=== PATIENT | female | born 1975 | race Asian ===

== ENCOUNTER 2019-12-03 12:53 | Outpatient (CLI) | payer OTHER ==
--- NOTE | 2019-12-03 16:05 | Mammography Report ---
Reason: ROUTINE MAMMO Procedure Date: 12/03/2019 Accession Number: [id number] / [id number] Procedure: MGN - Screening Mammo w/Eduardo CPT Code: Final Report FULL RESULT: EXAM: Screening Mammo w/Eduardo DATE: 12/03/2019 1:23 PM CLINICAL HISTORY: Screening encounter. History of early menses. TECHNIQUE: (B) - Bilateral CC and MLO views were obtained. COMPARISON: 11/05/2018 through 07/06/2015. PARENCHYMAL PATTERN: (D) - The breast(s) demonstrate(s) heterogeneously dense fibroglandular parenchyma. FINDINGS: There are no suspicious masses, calcifications, or areas of distortion. IMPRESSION: Negative examination. BI-RADS category 1. RECOMMENDATION: (ANNUAL) - Recommend routine annual screening mammography. BI-RADS CATEGORY: (1) - Negative. STANDARD QUALIFYING STATEMENTS: 1. This examination was not reviewed with the aid of Computer-Aided Detection (CAD). 2. A negative or benign imaging report should not preclude biopsy if clinically suspicious findings are present. 3. Dense breasts may obscure an underlying neoplasm. 4. This examination was reviewed with the aid of 3D breast imaging (tomosynthesis).
== END 2019-12-03 12:54 | disposition home or self-care (01) ==
LOC: DI.N 12:53
DX: Z12.31 Encounter for screening mammogram for malignant neoplasm of breast (principal)
CPT/HCPCS: 77063; 77067

== ENCOUNTER 2020-12-25 13:36 | Outpatient (CLI) | payer OTHER ==
--- NOTE | 2020-12-26 11:40 | Mammography Report ---
BILATERAL DIGITAL SCREENING MAMMOGRAM 3D/2D: 12/25/2020 CLINICAL: Routine screening. Comparison is made to exams dated: 12/03/2019 mammogram - [facility], 11/05/2018 mammo gram, 10/28/2015 mammogram, and 07/06/2015 mammogram - [facility]. The tissue of both b reasts is heterogeneously dense. This may lower the sensitivity of mammography. No significant masses, calcifications, or other findings are seen in either breast. There has been no significant interval change. IMPRESSION: NEGATIVE There is no mammographic evidence of malignancy. A 1 year screening mammogram is recommended. This exam was interpreted at Station ID: [id number]. NOTE: For mammograms, a report in lay terms will be sent to the patient. Approximately 15% of breast malignancies will not be visualized mammographically. In the management of a palpable breast mass, a negative mammogram must not discourage biopsy of a clinically suspicious lesion. Electronically Signed By: Giancarlo Santiago M.D. at/tatianarad:12/25/2020 16:02:13 ACR BI-RADS Category 1: Negative 3341F PARENCHYMAL PATTERN: (D) - The breast(s) demonstrate(s) heterogeneously dense fibroglandular darryl hurt. BI-RADS CATEGORY: (1) - 1 RECOMMENDATION: (ANNUAL) - Recommend routine annual screening mammography. [id number] 1 year screening LATERALITY: (B)
== END 2020-12-25 13:37 | disposition home or self-care (01) ==
LOC: DI.N 13:36
DX: Z12.31 Encounter for screening mammogram for malignant neoplasm of breast (principal)

== ENCOUNTER 2021-01-22 16:45 | Outpatient (CLI) | payer OTHER | END 2021-01-22 16:46 | disposition home or self-care (01) | LOC: COV 16:45 | PROVIDERS: ATTEND Physician Assistant | DX: Z01.812 Encounter for preprocedural laboratory examination (principal); Z20.822 Contact with and (suspected) exposure to COVID-19 ==

== ENCOUNTER 2021-05-05 08:00 | Outpatient (CLI) | payer OTHER | END 2021-05-05 23:59 | disposition home or self-care (01) | LOC: LAB.N 08:00 | PROVIDERS: ATTEND Nurse Practitioner | DX: R07.0 Pain in throat (principal); Z20.822 Contact with and (suspected) exposure to COVID-19 | CPT/HCPCS: 87070 ==

== ENCOUNTER 2021-09-13 14:03 | Outpatient (CLI) | payer OTHER ==
[2021-09-13 18:16] LABS: BASOPHILS # (AUTO) 0.1 10^3/uL (0.0-0.1); BASOPHILS % (AUTO) 1.5 %; EOSINOPHILS # (AUTO) 0.2 10^3/uL (0.0-0.7); EOSINOPHILS % (AUTO) 3.5 %; HCT - HEMATOCRIT 36.5 % (37.0-47.0); HGB - HEMOGLOBIN 12.1 g/dL (12.0-16.0); LYMPHOCYTES % (AUTO) 42.2 %; MEAN CORPUSCULAR HEMOGLOBIN 29.8 pg (27.0-31.0); MEAN CORPUSCULAR HGB CONC 33.2 g/dL (32.0-36.0); MEAN CORPUSCULAR VOLUME 89.9 fL (81.0-99.0); MEAN PLATELET VOLUME 10.5 fL (7.9-10.8); MONOCYTES # (AUTO) 0.4 10^3/uL (0.0-1.0); MONOCYTES % (AUTO) 7.5 %; NEUTROPHILS # (AUTO) 2.2 10^3/uL (1.5-6.6); NEUTROPHILS % (AUTO) 44.9 %; PLT - PLATELET COUNT 321 10^3/uL (130-450); RED BLOOD COUNT 4.06 10^6/uL (4.20-5.40); RED CELL DISTRIBUTION WIDTH 13.7 % (12.0-15.0); WHITE BLOOD COUNT 4.8 x10^3/uL (4.8-10.8)
== END 2021-09-13 23:59 | disposition home or self-care (01) ==
LOC: LAB.WCP 14:03
PROVIDERS: ATTEND Nurse Practitioner Family
DX: R21 Rash and other nonspecific skin eruption (principal); T49.0X5D Adverse effect of local antifungal, anti-infective and anti-inflammatory drugs, subsequent encounter
CPT/HCPCS: 36415; 81599; 82785; 83520; 85025; 86003; 86038; 86200; 86431

== ENCOUNTER 2023-07-11 07:33 | Outpatient (CLI) | payer OTHER ==
[~2023-07-11 07:33] MED LIST: GADOTERATE MEGLUMINE 10 MMOL/20 ML VIAL ONE
[2023-07-11] MEDS ORDERED: GADOTERATE MEGLUMINE 10 MMOL/20 ML VIAL IVP ONE (09:25)
--- NOTE | 2023-07-15 11:19 | MRI Report ---
PROCEDURE: ABDOMEN W/WO INDICATIONS: LEFT ADNEXAL MASS CONTRAST: CLARISCAN 11.8 ML TECHNIQUE: Coronal ultra fast SE, axial 2D spoiled GE in- and vwo-so-yujoo; axial breath-hold T2 fast SE. Dynam ic axial ultra fast GE during the administration of contrast; post-contrast coronal ultra fast GE or 2D spoiled GE with fat saturation from the hepatic dome to the iliac crests. Optional diffusion weig hted imaging and ADC may be performed. COMPARISON: None FINDINGS: Image quality: Excellent. Lung bases and heart: Unremarkable. Liver: No solid mass. Gallbladder and biliary tree: T2 hyperintense cystic lesions are present, with smooth peripheral enha ncement. No associated effusion. Spleen: No splenomegaly. Pancreas: No pancreatic ductal dilation. Adrenals: No adrenal nodule. Kidneys and ureters: No hydronephrosis. No renal cystic lesion which requires follow up. No solid mas s. Bowel and peritoneum: No bowel distension. No pathologic free fluid. Lymph nodes: No central or retroperitoneal adenopathy. Vessels: No infrarenal aortic aneurysm. Bones: No aggressive osseous abnormality. Other: No significant ventral hernia. IMPRESSION: No acute abnormality. Please see dedicated pelvic MRI. Reviewed by: Félix Nevarez on 07/15/2023 11:18 AM PDT Approved by: Félix Nevarez on 07/15/2023 11:18 AM PDT Station ID: [id number]
== END 2023-07-11 07:34 | disposition home or self-care (01) ==
LOC: DI 07:33
PROVIDERS: ATTEND Physician Assistant
DX: N83.8 Other noninflammatory disorders of ovary, fallopian tube and broad ligament (principal)
CPT/HCPCS: 74183; A9575

== ENCOUNTER 2023-07-15 09:26 | Outpatient (CLI) | payer OTHER ==
[2023-07-15] MEDS ORDERED: GADOTERATE MEGLUMINE 10 MMOL/20 ML VIAL ONE (09:36)
--- NOTE | 2023-07-15 15:00 | MRI Report ---
PROCEDURE: PELVIS W/WO INDICATIONS: LEFT ADNEXAL MASS CONTRAST: 11.8ml MultiHance TECHNIQUE: Coronal ultra fast SE, sagittal breath-hold T2 FSE; axial T1 FSE with and without fat saturation thro ugh the pelvis. Optional long- and short-axis uterine nonbreath-hold T2 FSE through the uterus. Sag ittal or axial dynamic ultra fast GE during administration of contrast. Post-contrast axial or coron al ultra fast GE / 2-D spoiled GE with fat saturation from the iliac crests to the symphysis. Option al diffusion weighted imaging and ADC may be performed. COMPARISON: None. FINDINGS: Image quality: Excellent. Uterus: Uterus is absent. Adnexa: Left adnexal mass measuring 6.8 x 6.3 x 6.5 cm. The mass demonstrates intrinsic T1 hyperinten se signal. A 4 mm papillary projection is present along the inferior margin (series 6, image 17), and there are are multiple locules containing variable T2 signal. There is a T-tube the structure immedi ately adjacent to this containing T1 hyperintense signal and incomplete internal septations (series 1 3, image 50). There is T2 shading present within the structures. Urinary system: Bladder wall is normal in thickness. Distal ureters are non distended. Urethra bridger ears normal in morphology. Nodes and vessels: No pelvic or inguinal adenopathy by size criteria. Iliac vessels are normal in s ize. Bowel and peritoneum: No pathologic free pelvic fluid. Inferior colon and small bowel loops are nor mal in caliber. Soft tissues: No inguinal hernias. No findings of pelvic floor incompetence in the absence of provo cation. Bones: Marrow demonstrates normal overall signal. IMPRESSION: O-RADS 4 cystic mass in the left adnexa, probably related to endometrial disease given adjacent fluid filled tubular structure likely representing a remnant fallopian tube. A tiny papillary projection p laces this mass in the O-RADS 4 category. Gynecologic referral is recommended, if not performed alrea dy. No pelvic adenopathy. Reviewed by: Félix Nevarez on 07/15/2023 2:59 PM PDT Approved by: Félix Nevarez on 07/15/2023 2:59 PM PDT Station ID: [id number]
[2023-07-15] MEDS ORDERED: GADOTERATE MEGLUMINE 10 MMOL/20 ML VIAL IVP ONE (18:32)
== END 2023-07-15 09:27 | disposition home or self-care (01) ==
LOC: DI 09:26
PROVIDERS: ATTEND Physician Assistant
DX: N83.202 Unspecified ovarian cyst, left side (principal)
CPT/HCPCS: 72197; A9575

== ENCOUNTER 2024-03-08 12:18 | Inpatient (IN) | payer OTHER ==
[2024-03-08 12:43] LABS: BASOPHILS # (AUTO) 0.1 10^3/uL (0.0-0.1); BASOPHILS % (AUTO) 0.4 %; HCT - HEMATOCRIT 41.8 % (37.0-47.0); HGB - HEMOGLOBIN 14.1 g/dL (12.0-16.0); LYMPHOCYTES # (AUTO) 1.3 10^3/uL (1.5-3.5); LYMPHOCYTES % (AUTO) 7.3 %; MEAN CORPUSCULAR HEMOGLOBIN 29.6 pg (27.0-31.0); MEAN CORPUSCULAR HGB CONC 33.7 g/dL (32.0-36.0); MEAN CORPUSCULAR VOLUME 87.6 fL (81.0-99.0); MEAN PLATELET VOLUME 9.5 fL (7.9-10.8); MONOCYTES # (AUTO) 0.4 10^3/uL (0.0-1.0); MONOCYTES % (AUTO) 2.1 %; NEUTROPHILS % (AUTO) 89.9 %; PLT - PLATELET COUNT 403 10^3/uL (130-450); RED BLOOD COUNT 4.77 10^6/uL (4.20-5.40); RED CELL DISTRIBUTION WIDTH 13.2 % (12.0-15.0); WHITE BLOOD COUNT 17.8 x10^3/uL (4.8-10.8)
[2024-03-08 13:00] LABS: ALBUMIN 4.9 g/dL (3.2-5.5); ALBUMIN/GLOBULIN RATIO 1.4 (1.0-2.2); BILIRUBIN,TOTAL 0.6 mg/dL (0.2-1.0); CALCIUM 10.3 mg/dL (8.5-10.3); CREATININE 0.6 mg/dL (0.6-1.3); POTASSIUM 3.7 mmol/L (3.5-4.5); TOTAL PROTEIN 8.4 g/dL (6.4-8.9)
--- NOTE | 2024-03-08 13:51 | Ultrasound Report ---
PROCEDURE: Pelvic w/Doppler Complete INDICATIONS: pelvic pain TECHNIQUE: Real-time scanning was performed of the pelvic organs, with image documentation. Additional endovagi nal scanning was necessary due to incomplete visualization of the adnexal and endometrial structures by transabdominal scanning. COMPARISON: MRI pelvis 07/15/2023. FINDINGS: Uterus: Surgically absent. Ovaries: The ovaries are surgically absent. Other: Trace midline free fluid is seen. IMPRESSION: 1.The ovaries and uterus are surgically absent. 2.Trace pelvic free fluid. Reviewed by: Grey Padron MD on 03/08/2024 1:50 PM PDT Approved by: Grey Padron MD on 03/08/2024 1:50 PM PDT Station ID: [id number]
--- NOTE | 2024-03-08 15:20 | ED Physician Documentation ---
PD HPI ABD PAIN - Stated complaint Stated Complaint: POST SURG ABD PX - Chief complaint Chief Complaint: Abd Pain - History obtained from History obtained from: Patient, Family - Additional information Additional information: The patient comes to the emergency department chief complaint of left upper quadrant pain that started overnight. She just recently about 1 week ago had a surgery to Remove her left fallopian tube and also, to possibly remove the left ovary in the setting of cystic mass. However, when they went in to do the surgery, turned out that the mass is very complicated and that other than draining the cyst, they really could not actually continue to dissected the ovary out of the other surrounding structures. The tube was removed. The patient states she has been doing well since the surgery and that she has not had any fevers or abdominal pain to speak of. She states that around 2200 yesterday, she began to notice pain in her left upper quadrant and then this progressed to nausea and vomiting. She states that the pain has become persistent instead of intermittent stabs like it was and that she still felt nauseated. She denies any dysuria or change in bowel movements. No fevers or chills. No other complaints at this time. PD PAST MEDICAL HISTORY - Past Medical History Past Medical History: Yes CORPORATE LEGAL ASSISTANT: Ovarian cysts - Past Surgical History Past Surgical History: Yes /CORPORATE LEGAL ASSISTANT: Other - Present Medications Home Medications: Ambulatory Orders Medication Instructions Recorded Confirmed Acetaminophen [Tylenol] 650 mg PO Q6H PRN 03/08/24 03/08/24 Cetirizine [ZyrTEC] 10 mg PO DAILY 03/08/24 03/08/24 Ibuprofen [Motrin] 600 mg PO Q6H PRN 03/08/24 03/08/24 - Allergies Allergies/Adverse Reactions: Allergies Allergy/AdvReac Type Severity Reaction Status Date / Time No Known Drug Allergies Allergy Verified 03/08/24 12:29 - Social History Does the pt smoke?: No Smoking Status: Never smoker Does the pt drink ETOH?: No Does the pt have substance abuse?: No - Immunizations Immunizations are current?: Yes PD ED PE NORMAL - Vitals Vital signs reviewed: Yes - General General: Alert and oriented X 3, No acute distress, Well developed/nourished, Other (The patient appears moderately uncomfortable but otherwise no apparent distress.) - HEENT HEENT: Atraumatic, EOMI, Moist mucous membranes - Neck Neck: Supple, no meningeal sign - Cardiac Cardiac: RRR, No murmur, Strong equal pulses - Respiratory Respiratory: No respiratory distress, Clear bilaterally - Abdomen Abdomen: Soft, Non distended, Other - Derm Derm: Normal color, Warm and dry, No rash - Extremities Extremities: No deformity, No edema - Neuro Neuro: Other (Alert, grossly intact.) - Psych Psych: Normal mood, Normal affect Results - Vitals Vitals: Vital Signs - 24 hr 03/08/24 03/08/24 03/08/24 12:22 15:04 17:00 Temperature 36 C L Heart Rate 74 83 74 Respiratory 18 18 16 Rate Blood Pressure 124/82 H 151/89 H 132/88 H O2 Saturation 97 97 98 Oxygen O2 Source Room air - Labs Labs: Laboratory Tests 03/08/24 03/08/24 03/08/24 12:38 12:38 17:50 WBC 17.8 H RBC 4.77 Hgb 14.1 Hct 41.8 MCV 87.6 MCH 29.6 MCHC 33.7 RDW 13.2 Plt Count 403 MPV 9.5 Neut # (Auto) 16.0 H Lymph # (Auto) 1.3 L [place] # (Auto) 0.4 Eos # (Auto) 0.0 Baso # (Auto) 0.1 Absolute Nucleated RBC 0.00 Nucleated RBC % 0.0 Sodium 135 Potassium 3.7 Chloride 102 Carbon Dioxide 24 Anion Gap 9.0 BUN 14 Creatinine 0.6 Estimated GFR (MDRD) 106 Glucose 154 H Calcium 10.3 Total Bilirubin 0.6 AST 12 ALT 19 Alkaline Phosphatase 66 Total Protein 8.4 Albumin 4.9 Globulin 3.5 Albumin/Globulin Ratio 1.4 Lipase 12 Urine Color YELLOW Urine Clarity CLEAR Urine pH 7.0 Ur Specific [place] 1.010 Urine Protein NEGATIVE Urine Glucose (UA) NEGATIVE Urine Ketones 40 H Urine Occult Blood TRACE-INTA Urine Nitrite NEGATIVE Urine Bilirubin NEGATIVE Urine Urobilinogen 0.2 (NORMAL) Ur Leukocyte Esterase NEGATIVE Ur Microscopic Review NOT INDICATED Urine Culture Comments NOT INDICATED Urine HCG, Qual NEGATIVE PD Medical Decision Making - ED course Complexity details: reviewed results, re-evaluated patient, considered differential, d/w patient, d/w family ED course: I reviewed the patient's records from [facility] including her preop and operative notes. The patient appeared uncomfortable, and she did have a white blood cell count of 18,000. Her ultrasound of the pelvis was unremarkable. Patient was sent for CT scan of the abdomen and pelvis to further evaluate her pain in the postop setting. She was treated symptomatically with Dilaudid, Zofran, and IV fluids. The patient was found to be feeling better but her CT did show what appeared to be small bowel obstruction. There was no clear transition point. I spoke with our surgeon Dr. Smith, who stated that she suspected an ileus, but given that the patient has just had surgery at another facility, she would prefer that we give the patient's surgeon an opportunity to take care of his or her patient. We did call [facility] and they are currently determining whether they have bed space to take the patient back. I have informed the patient of the situation and the plan to either transfer or admit here. The patient is signed out to the oncoming emergency physician at change of shift, pending final disposition. Departure - Departure Forms: PCP List
[2024-03-08] MEDS: ONDANSETRON 4 MG/2 ML VIAL IVP STA (15:24)
[2024-03-08] MEDS: HYDROmorphone 1 MG/ML CARPUJECT IVP STA ×2 (15:24→18:46)
[2024-03-08] MEDS: SODIUM CHLORIDE 0.9% 1,000 ML IV STA (15:24)
[2024-03-08] MEDS ORDERED: iohexoL-300 100 ML VIAL ONE (16:15)
[2024-03-08] MEDS: iohexoL-300 100 ML VIAL IVP ONE (17:15)
--- NOTE | 2024-03-08 17:17 | CT Report ---
PROCEDURE: Abdomen/Pelvis W INDICATIONS: L abd pn, WBC 18, 1 wk post-op CONTRAST: Omni 300 100ml TECHNIQUE: After the administration of intravenous contrast, a CT scan of the abdomen and pelvis was performed. Images were recorded and evaluated at appropriate window settings. Reformats: coronal and sagittal. F or radiation dose reduction, the following was used: automated exposure control, adjustment of mA and /or kV according to patient size. COMPARISON: MRI pelvis with and without contrast dated 07/15/2023, pelvic ultrasound from today FINDINGS: Image quality: Diagnostic. Lower chest: Unremarkable. Liver: No solid mass. Gallbladder: No radiopaque stones or wall thickening. Biliary tree: No intrahepatic or extrahepatic dilation, accounting for age. Spleen: No splenomegaly. Pancreas: No pancreatic ductal dilation. Adrenals: No adrenal nodule. Kidneys and ureters: No hydronephrosis. No renal cystic lesion which requires follow up. No solid mas s. Stomach, bowel and peritoneum: There is now a small bowel obstruction pattern. Proximal small bowel l oops are dilated up to 3 cm in diameter. There is fecalization of small bowel contents. There is a tr ansition point present. Mild ascites. No abscess cavity. Lymph nodes: No central or retroperitoneal adenopathy. Vessels: No infrarenal aortic aneurysm. Patent portal vein. PELVIS Reproductive organs: Uterus is surgically absent. The complex partially solid and partially cystic le ft adnexal structure seen on the MRI, likely representing endometrioma, is diminished in size. The cy stic component on the previous MRI on image 26/7 previously measured 7.0 x 5.6 cm. This component now measures approximately 4.8 x 3.7 cm. The solid component is similar in appearance to previous. Refer ence previous image 36 of series 7 of the MRI and current image 114 of series 2 the solid component m easures approximately 3.7 x 2.0 cm.. Bladder: No abnormal wall thickening, accounting for underdistention. Pelvic lymph nodes: No pelvic adenopathy by size criteria. Bones: No aggressive osseous abnormality. Other: No significant ventral or inguinal hernia. IMPRESSION: 1. Development of a small bowel obstruction pattern. 2. Interval decrease in size of complex partially solid and partially cystic left adnexal mass. 3. Surgical absence of the uterus. Reviewed by: Marcos Post MD on 03/08/2024 5:16 PM PDT Approved by: Marcos Post MD on 03/08/2024 5:16 PM PDT Station ID: [id number]
[2024-03-08 18:02] LABS: BILIRUBIN,URINE NEGATIVE (NEGATIVE); GLUCOSE, URINE (UA) NEGATIVE (NEGATIVE); KETONES,URINE (UA) 40 mg/dL (NEGATIVE); LEUKOCYTE ESTERASE, URINE NEGATIVE (NEGATIVE); NITRITE,URINE NEGATIVE (NEGATIVE); OCCULT BLOOD,URINE TRACE-INTA (NEGATIVE); PROTEIN,URINE NEGATIVE (NEGATIVE); UROBILINOGEN,URINE 0.2 (NORMAL) E.U./dL (NORMAL)
[2024-03-08 18:03] LABS: CLARITY,URINE CLEAR (CLEAR)
[2024-03-08 18:04] LABS: HCG UR QUAL NEGATIVE
[2024-03-08] MEDS: D5.45NS W/20 MEQ KCL 1,000 ML IV STA (18:30)
--- NOTE | 2024-03-08 20:22 | ED Physician Documentation ---
ED Addendum - Addendum Addendum: 03/08/24 20:[address] Newton around 630 shift change. Briefly she had a remote hysterectomy and left oophorectomy and more recently was at [facility] for a laparoscopy for right adnexal mass which was drained on March 01. She had extensive adhesions. Came in today with abdominal pain and vomiting and diagnosed with SBO versus ileus. We were hopeful that potentially should be able to get transferred back to [facility] for postoperative care as that is where her procedure was. I was notified few minutes after 8 PM that they have no beds. I talked to the patient and she was amenable to being admitted here. I discussed the case by phone with our surgeon, Dr. 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 She is available for consultation if needed but at this point we are hopeful that with bowel rest, IV fluids, and NG tube decompression she will improve without operative intervention. Spoke with Dr. Nereyda To for admission at 8:20 PM. Disposition: Admitted to this hospital Condition: Stable Diagnosis: 1. Postoperative ileus versus SBO
[2024-03-08] MEDS ORDERED: PROCHLORPERAZINE 10 MG/2 ML VIAL IVP PRN (21:18)
--- NOTE | 2024-03-08 21:35 | HISTORY & PHYSICAL EXAMINATION ---
Chief Complaint - Chief Complaint Chief Complaint: abdominal pain Abdominal Pain HPI - Admitted From Admitted from: ED - History Obtained From Records Reviewed: RN notes reviewed, Old records reviewed, Other ([facility] H&P and op note from Surgery 03/01/24) History obtained from: Patient Exam limitations: No limitations - History of Present Illness Pain/Problem Location Description: severe abd pain Severity at the worst: Severe Pain Quality: Sharp, Cramping Context-Pain started w/: Eating Timing: Abrupt onset Duration: Hours: Improved with: Other (time, after vomiting) Associated symptoms: Diaphoresis, Vomiting HPI Comment/Other: Patient is s/p laparoscopy 03/01/[address] [facility] with evaluation and drainage of left adnexal mass and lysis of adhesions. The surgeon was not able to remove the mass due to adhesions. Seemed consistent with an endometrioma. She was doing well post op until last evening and this worse this am. Pain became quite severe causing her to sweat and vomit. She vomited 3 times today and came to ER. She last ate last evening and vomited after. That is when her pain started. She denies fever. just was sweating when she felt awful. She had 2 BMs yesterday and one this am. She does not feel constipated but this am she was very bloated. She is not bloated now. She is still painful but much less than previously. 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 Done at [facility]), Other (removal right tube and ovary in 2003 due to an ovarian cyst. recent laparoscopy as described above. 03/01/24) Social & Family Hx - Living Situation Living Arrangement: At home Living Situation: With spouse/s.o. - Social History Does the pt smoke?: No Smoking Status: Former smoker (prior 2 ppd from 1998 to 2008.) Does the pt drink ETOH?: No Does the pt have substance abuse?: No Additional Social History: Born and raised in [place], outside of [facility]. met her in [place] when he was stationed there. Came to [place] with him in . Never has been back except to visit. he is retired now. - POLST Patient has POLST: No - Family History Family History: Father: Cancer (prostate) Family History Comment/Other: mom with h/o fibroid uterus. sister with fibroids and endometriosis. Meds/Allgy - Home Medications Home Medications: Ambulatory Orders Medication Instructions Recorded Confirmed Acetaminophen [Tylenol] 650 mg PO Q6H PRN 03/08/24 03/08/24 Cetirizine [ZyrTEC] 10 mg PO DAILY 03/08/24 03/08/24 Ibuprofen [Motrin] 600 mg PO Q6H PRN 03/08/24 03/08/24 - Allergies Allergies/Adverse Reactions: Allergies Allergy/AdvReac Type Severity Reaction Status Date / Time No Known Drug Allergies Allergy Verified 03/08/24 12:29 Review of Systems - Cardiovascular Cariovascular: denies: Palpitations - Respiratory Respiratory: denies: SOB at rest Exam - Vital Signs Reviewed Vital Signs: Yes Vital Signs: Vital Signs x48h Pulse Resp BP Pulse Ox 03/08/24 21:00 66 18 125/60 99 03/08/24 19:37 74 16 128/62 97 03/08/24 17:00 74 16 132/88 H 98 03/08/24 15:04 83 18 151/89 H 97 - Physical Exam General Appearance: positive: No acute distress, Alert Eyes Bilateral: positive: Normal inspection Neck: positive: Nml inspection Respiratory: positive: No respiratory distress Cardiovascular: positive: Regular rate & rhythm Peripheral Pulses: positive: 2+ Abdomen: positive: No distention, Tenderness (mild.), Other (wounds healing well from surgery last week. mildly tender in lower quadrants. no point tenderness.). negative: Guarding, Rebound, Mass Skin: positive: Color nml. negative: Diaphoresis Extremities: positive: Non-tender, No pedal edema Neurologic/Psychiatric: positive: Oriented x3 Results - Lab Results Fish Bones: 03/08/24 12:38 03/08/24 12:38 Other Lab Results: Lab Results x24hrs 03/08/24 03/08/24 03/08/24 Range/Units 17:50 12:38 12:38 WBC 17.8 H (4.8-10.8) x10^3/uL RBC 4.77 (4.20-5.40) 10^6/uL Hgb 14.1 (12.0-16.0) g/dL Hct 41.8 (37.0-47.0) % MCV 87.6 (81.0-99.0) fL MCH 29.6 (27.0-31.0) pg MCHC 33.7 (32.0-36.0) g/dL RDW 13.2 (12.0-15.0) % Plt Count 403 (130-450) 10^3/uL MPV 9.5 (7.9-10.8) fL Neut # (Auto) 16.0 H (1.5-6.6) 10^3/uL Lymph # (Auto) 1.3 L (1.5-3.5) 10^3/uL [place] # (Auto) 0.4 (0.0-1.0) 10^3/uL Eos # (Auto) 0.0 (0.0-0.7) 10^3/uL Baso # (Auto) 0.1 (0.0-0.1) 10^3/uL Absolute Nucleated RBC 0.00 x10^3/uL Nucleated RBC % 0.0 /100WBC Sodium 135 (135-145) mmol/L Potassium 3.7 (3.5-4.5) mmol/L Chloride 102 (101-111) mmol/L Carbon Dioxide 24 (21-32) mmol/L Anion Gap 9.0 (6-13) BUN 14 (6-20) mg/dL Creatinine 0.6 (0.6-1.3) mg/dL Estimated GFR (MDRD) 106 (>89) Glucose 154 H (74-104) mg/dL Calcium 10.3 (8.5-10.3) mg/dL Total Bilirubin 0.6 (0.2-1.0) mg/dL AST 12 (10-42) IU/L ALT 19 (10-60) IU/L Alkaline Phosphatase 66 (42-121) IU/L Total Protein 8.4 (6.4-8.9) g/dL Albumin 4.9 (3.2-5.5) g/dL Globulin 3.5 (2.1-4.2) g/dL Albumin/Globulin Ratio 1.4 (1.0-2.2) Lipase 12 (11-82) U/L Urine Color YELLOW Urine Clarity CLEAR (CLEAR) Urine pH 7.0 (5.0-7.5) PH Ur Specific [place] 1.010 (1.002-1.030) Urine Protein NEGATIVE (NEGATIVE) mg/dL Urine Glucose (UA) NEGATIVE (NEGATIVE) mg/dL Urine Ketones 40 H (NEGATIVE) mg/dL Urine Occult Blood TRACE-INTA (NEGATIVE) Urine Nitrite NEGATIVE (NEGATIVE) Urine Bilirubin NEGATIVE (NEGATIVE) Urine Urobilinogen 0.2 (NORMAL) (NORMAL) E.U./dL Ur Leukocyte Esterase NEGATIVE (NEGATIVE) Ur Microscopic Review NOT INDICATED Urine Culture Comments NOT INDICATED Urine HCG, Qual NEGATIVE - Diagnostic Imaging Results Diagnostic Imaging Results: positive: Final report reviewed - EKG Results EKG Interpreted Independently: No Impression/Plan - Problem List Problem List: post op pain. post op from laparoscopy with adhesiolysis 03/01/[address] [facility] CT scan done at 1530 today does show possible bowel obstruction. Patient was vomiting and in alot of pain this am but now is better. has not vomited since 10 am. does not feel nauseated. tolerating some ice chips. On exam her abdomen is soft. no longer distended from what she described it was this am. Given that she is better, I will not place an NG tube tonight. If she is not better in the am, I told her we would need to place one, but if she is better, then maybe she will be able to eat and go home. Will keep NPO for tonight except some ice chips. I did tell her not to have much. Her WBC is elevated but no abscess noted on CT and no signs of infection in her urine. No fever. will not give abx for now. Continue hydration with D% 1/2 NS wtih K+. reevaluate in am. If feeling worse, will consult general surgery to assist with management.
[2024-03-08] MEDS: KETOROLAC 30 MG/ML VIAL IVP PRN (22:00)
[2024-03-08] MEDS: SODIUM CHLORIDE FLUSH 0.9% 10 ML SYRINGE IVP SCH (22:00)
[2024-03-09] MEDS: HYDROmorphone 0.5 MG/0.5 ML SYRINGE IVP PRN (02:57)
[2024-03-09] MEDS: D5.45NS W/20 MEQ KCL 1,000 ML IV STA (02:57)
--- NOTE | 2024-03-09 08:06 | PROVIDER PROGRESS NOTE ---
Subjective - Prog Note Date Prog Note Date: 03/09/24 Prog Note Time: 08:04 - Subjective Pt reports feeling: Improved Subjective: still with some pain. 5 now. crampy. feels like gas moving around. no vomiting overnight. not feeling nauseated. feels like she could drink liquids. just urinated. no bm today yet. Objective - Vital Signs/Intake & Output Vital Signs: Vital Signs x48h Temp Pulse Resp BP Pulse Ox 03/09/24 07:44 98.4 F 69 16 91/66 96 03/09/24 00:20 98.1 F 65 20 119/67 95 Intake & Output: Intake & Output 03/06/24 03/07/24 03/08/24 03/09/24 23:59 23:59 23:59 23:59 Intake Total 1000 50 Balance 1000 50 - Objective Abdomen: positive: Other (mild distention, mildy tender mostly left mid abdomen.). negative: Guarding, Rebound - Lab Results Fish Bones: 03/08/24 12:38 03/08/24 12:38 Other Labs: Lab Results x24hrs 03/08/24 03/08/24 03/08/24 Range/Units 17:50 12:38 12:38 WBC 17.8 H (4.8-10.8) x10^3/uL RBC 4.77 (4.20-5.40) 10^6/uL Hgb 14.1 (12.0-16.0) g/dL Hct 41.8 (37.0-47.0) % MCV 87.6 (81.0-99.0) fL MCH 29.6 (27.0-31.0) pg MCHC 33.7 (32.0-36.0) g/dL RDW 13.2 (12.0-15.0) % Plt Count 403 (130-450) 10^3/uL MPV 9.5 (7.9-10.8) fL Neut # (Auto) 16.0 H (1.5-6.6) 10^3/uL Lymph # (Auto) 1.3 L (1.5-3.5) 10^3/uL [place] # (Auto) 0.4 (0.0-1.0) 10^3/uL Eos # (Auto) 0.0 (0.0-0.7) 10^3/uL Baso # (Auto) 0.1 (0.0-0.1) 10^3/uL Absolute Nucleated RBC 0.00 x10^3/uL Nucleated RBC % 0.0 /100WBC Sodium 135 (135-145) mmol/L Potassium 3.7 (3.5-4.5) mmol/L Chloride 102 (101-111) mmol/L Carbon Dioxide 24 (21-32) mmol/L Anion Gap 9.0 (6-13) BUN 14 (6-20) mg/dL Creatinine 0.6 (0.6-1.3) mg/dL Estimated GFR (MDRD) 106 (>89) Glucose 154 H (74-104) mg/dL Calcium 10.3 (8.5-10.3) mg/dL Total Bilirubin 0.6 (0.2-1.0) mg/dL AST 12 (10-42) IU/L ALT 19 (10-60) IU/L Alkaline Phosphatase 66 (42-121) IU/L Total Protein 8.4 (6.4-8.9) g/dL Albumin 4.9 (3.2-5.5) g/dL Globulin 3.5 (2.1-4.2) g/dL Albumin/Globulin Ratio 1.4 (1.0-2.2) Lipase 12 (11-82) U/L Urine Color YELLOW Urine Clarity CLEAR (CLEAR) Urine pH 7.0 (5.0-7.5) PH Ur Specific [place] 1.010 (1.002-1.030) Urine Protein NEGATIVE (NEGATIVE) mg/dL Urine Glucose (UA) NEGATIVE (NEGATIVE) mg/dL Urine Ketones 40 H (NEGATIVE) mg/dL Urine Occult Blood TRACE-INTA (NEGATIVE) Urine Nitrite NEGATIVE (NEGATIVE) Urine Bilirubin NEGATIVE (NEGATIVE) Urine Urobilinogen 0.2 (NORMAL) (NORMAL) E.U./dL Ur Leukocyte Esterase NEGATIVE (NEGATIVE) Ur Microscopic Review NOT INDICATED Urine Culture Comments NOT INDICATED Urine HCG, Qual NEGATIVE Assessment/Plan - Problem List (1) Post-op pain Impression: ileus or maybe sbo. does not seem worse this am. maybe mildly better. will try clear liquids and see if she tolerates. encouraged to get up and walk around. sign out given to Dr. Ramos. will check labs now.
[2024-03-09 08:25] LABS: BASOPHILS % (AUTO) 0.5 %; EOSINOPHILS # (AUTO) 0.1 10^3/uL (0.0-0.7); EOSINOPHILS % (AUTO) 1.5 %; HCT - HEMATOCRIT 33.5 % (37.0-47.0); LYMPHOCYTES # (AUTO) 1.9 10^3/uL (1.5-3.5); LYMPHOCYTES % (AUTO) 23.1 %; MEAN CORPUSCULAR HEMOGLOBIN 29.7 pg (27.0-31.0); MEAN CORPUSCULAR HGB CONC 32.8 g/dL (32.0-36.0); MEAN CORPUSCULAR VOLUME 90.5 fL (81.0-99.0); MEAN PLATELET VOLUME 9.3 fL (7.9-10.8); MONOCYTES # (AUTO) 0.6 10^3/uL (0.0-1.0); MONOCYTES % (AUTO) 7.5 %; NEUTROPHILS # (AUTO) 5.5 10^3/uL (1.5-6.6); NEUTROPHILS % (AUTO) 67.3 %; PLT - PLATELET COUNT 285 10^3/uL (130-450); WHITE BLOOD COUNT 8.1 x10^3/uL (4.8-10.8)
[2024-03-09] MEDS: FAMOTIDINE 20 MG/2 ML VIAL IVP SCH (08:27)
[2024-03-09 08:44] LABS: ALBUMIN 3.4 g/dL (3.2-5.5); ALBUMIN/GLOBULIN RATIO 1.4 (1.0-2.2); BILIRUBIN,TOTAL 0.5 mg/dL (0.2-1.0); CALCIUM 8.3 mg/dL (8.5-10.3); CREATININE 0.7 mg/dL (0.6-1.3); POTASSIUM 3.6 mmol/L (3.5-4.5); TOTAL PROTEIN 5.9 g/dL (6.4-8.9)
[2024-03-09] MEDS: ACETAMINOPHEN 1,000 MG/100 ML 1,000 MG/100 ML BAG IV PRN (12:00)
--- NOTE | 2024-03-09 12:47 | PROVIDER PROGRESS NOTE ---
Subjective - Prog Note Date Prog Note Date: 03/09/24 Prog Note Time: 12:30 - Subjective Subjective: Reports some abdominal discomfort. No nausea or vomiting. Tolerated some liquid diet this am, has not tried lunch yet. Denies flatus. Has not ambulated much besides to bathroom. Objective - Vital Signs/Intake & Output Reviewed Vital Signs: Yes Vital Signs: Vital Signs x48h Temp Pulse Resp BP Pulse Ox 03/09/24 07:44 98.4 F 69 16 91/66 96 Intake & Output: Intake & Output 03/06/24 03/07/24 03/08/24 03/09/24 23:59 23:59 23:59 23:59 Intake Total 1000 530 Balance 1000 530 - Objective General Appearance: positive: No acute distress Respiratory: positive: No respiratory distress Abdomen: positive: Nml bowel sounds, Other (Minimal tenderness, no rebound or guarding, positive bowel sounds) Skin: positive: Color nml Extremities: positive: Non-tender - Lab Results Fish Bones: 03/09/24 08:20 03/09/24 08:20 Other Labs: Lab Results x24hrs 03/09/24 03/09/24 03/08/24 Range/Units 08:20 08:20 17:50 WBC 8.1 (4.8-10.8) x10^3/uL RBC 3.70 L (4.20-5.40) 10^6/uL Hgb 11.0 L (12.0-16.0) g/dL Hct 33.5 L (37.0-47.0) % MCV 90.5 (81.0-99.0) fL MCH 29.7 (27.0-31.0) pg MCHC 32.8 (32.0-36.0) g/dL RDW 14.0 (12.0-15.0) % Plt Count 285 (130-450) 10^3/uL MPV 9.3 (7.9-10.8) fL Neut # (Auto) 5.5 (1.5-6.6) 10^3/uL Lymph # (Auto) 1.9 (1.5-3.5) 10^3/uL [place] # (Auto) 0.6 (0.0-1.0) 10^3/uL Eos # (Auto) 0.1 (0.0-0.7) 10^3/uL Baso # (Auto) 0.0 (0.0-0.1) 10^3/uL Absolute Nucleated RBC 0.00 x10^3/uL Nucleated RBC % 0.0 /100WBC Sodium 135 (135-145) mmol/L Potassium 3.6 (3.5-4.5) mmol/L Chloride 105 (101-111) mmol/L Carbon Dioxide 27 (21-32) mmol/L Anion Gap 3.0 L (6-13) BUN 9 (6-20) mg/dL Creatinine 0.7 (0.6-1.3) mg/dL Estimated GFR (MDRD) 89 (>89) Glucose 113 H (74-104) mg/dL Calcium 8.3 L (8.5-10.3) mg/dL Total Bilirubin 0.5 (0.2-1.0) mg/dL AST 9 L (10-42) IU/L ALT 11 (10-60) IU/L Alkaline Phosphatase 46 (42-121) IU/L Total Protein 5.9 L (6.4-8.9) g/dL Albumin 3.4 (3.2-5.5) g/dL Globulin 2.5 (2.1-4.2) g/dL Albumin/Globulin Ratio 1.4 (1.0-2.2) Lipase (11-82) U/L Urine Color YELLOW Urine Clarity CLEAR (CLEAR) Urine pH 7.0 (5.0-7.5) PH Ur Specific [place] 1.010 (1.002-1.030) Urine Protein NEGATIVE (NEGATIVE) mg/dL Urine Glucose (UA) NEGATIVE (NEGATIVE) mg/dL Urine Ketones 40 H (NEGATIVE) mg/dL Urine Occult Blood TRACE-INTA (NEGATIVE) Urine Nitrite NEGATIVE (NEGATIVE) Urine Bilirubin NEGATIVE (NEGATIVE) Urine Urobilinogen 0.2 (NORMAL) (NORMAL) E.U./dL Ur Leukocyte Esterase NEGATIVE (NEGATIVE) Ur Microscopic Review NOT INDICATED Urine Culture Comments NOT INDICATED Urine HCG, Qual NEGATIVE 03/08/24 03/08/24 Range/Units 12:38 12:38 WBC 17.8 H (4.8-10.8) x10^3/uL RBC 4.77 (4.20-5.40) 10^6/uL Hgb 14.1 (12.0-16.0) g/dL Hct 41.8 (37.0-47.0) % MCV 87.6 (81.0-99.0) fL MCH 29.6 (27.0-31.0) pg MCHC 33.7 (32.0-36.0) g/dL RDW 13.2 (12.0-15.0) % Plt Count 403 (130-450) 10^3/uL MPV 9.5 (7.9-10.8) fL Neut # (Auto) 16.0 H (1.5-6.6) 10^3/uL Lymph # (Auto) 1.3 L (1.5-3.5) 10^3/uL [place] # (Auto) 0.4 (0.0-1.0) 10^3/uL Eos # (Auto) 0.0 (0.0-0.7) 10^3/uL Baso # (Auto) 0.1 (0.0-0.1) 10^3/uL Absolute Nucleated RBC 0.00 x10^3/uL Nucleated RBC % 0.0 /100WBC Sodium 135 (135-145) mmol/L Potassium 3.7 (3.5-4.5) mmol/L Chloride 102 (101-111) mmol/L Carbon Dioxide 24 (21-32) mmol/L Anion Gap 9.0 (6-13) BUN 14 (6-20) mg/dL Creatinine 0.6 (0.6-1.3) mg/dL Estimated GFR (MDRD) 106 (>89) Glucose 154 H (74-104) mg/dL Calcium 10.3 (8.5-10.3) mg/dL Total Bilirubin 0.6 (0.2-1.0) mg/dL AST 12 (10-42) IU/L ALT 19 (10-60) IU/L Alkaline Phosphatase 66 (42-121) IU/L Total Protein 8.4 (6.4-8.9) g/dL Albumin 4.9 (3.2-5.5) g/dL Globulin 3.5 (2.1-4.2) g/dL Albumin/Globulin Ratio 1.4 (1.0-2.2) Lipase 12 (11-82) U/L Urine Color Urine Clarity (CLEAR) Urine pH (5.0-7.5) PH Ur Specific [place] (1.002-1.030) Urine Protein (NEGATIVE) mg/dL Urine Glucose (UA) (NEGATIVE) mg/dL Urine Ketones (NEGATIVE) mg/dL Urine Occult Blood (NEGATIVE) Urine Nitrite (NEGATIVE) Urine Bilirubin (NEGATIVE) Urine Urobilinogen (NORMAL) E.U./dL Ur Leukocyte Esterase (NEGATIVE) Ur Microscopic Review Urine Culture Comments Urine HCG, Qual Assessment/Plan - Problem List (1) Small bowel obstruction due to postoperative adhesions Impression: 48yo s/p laparoscopic drainage of left ovarian cyst, POD#8 - She was started on liquid diet this am which she has tolerated without nausea or vomiting but does report discomfort. Will not advance yet, advised to go slow with her liquid lunch. - Stable, encouraged ambulation today. - Not ready for discharge, consider advancing diet tomorrow if improved. - CBC, CMP, Mg in am
--- NOTE | 2024-03-09 16:43 | PHARMACY PROGRESS NOTE ---
- Best Possible Medication History Admit Date and Time: 03/08/242117 Processed by: Pharmacy Medications reviewed in ED?: Yes Medication History completed: Yes Patient Interview: Pt unable to participate Secondary Source(s): Insurance records (X2 ATTEMPTS FOR INTERVIEW. MED REC BASED OFF OF NURSING REVIEW AND FILL HX.) As the person ultimately responsible for medication therapy, providers are able to order a medication from an existing home medication list in [facility] via the "Reconcile Routine" prior to Confirmation of that medication by peer support specialist. Such practice is discouraged except when the physician, in their clinical judgment, deems that a medical need exists for a medication without regard to previous use.
[2024-03-09] MEDS: SODIUM CHLORIDE FLUSH 0.9% 10 ML SYRINGE IVP PRN (20:58)
[2024-03-10 05:38] LABS: BASOPHILS % (AUTO) 0.6 %; EOSINOPHILS # (AUTO) 0.1 10^3/uL (0.0-0.7); EOSINOPHILS % (AUTO) 2.1 %; HCT - HEMATOCRIT 32.2 % (37.0-47.0); HGB - HEMOGLOBIN 10.6 g/dL (12.0-16.0); LYMPHOCYTES # (AUTO) 1.8 10^3/uL (1.5-3.5); LYMPHOCYTES % (AUTO) 27.9 %; MEAN CORPUSCULAR HEMOGLOBIN 29.9 pg (27.0-31.0); MEAN CORPUSCULAR HGB CONC 32.9 g/dL (32.0-36.0); MEAN PLATELET VOLUME 9.5 fL (7.9-10.8); MONOCYTES # (AUTO) 0.4 10^3/uL (0.0-1.0); MONOCYTES % (AUTO) 6.1 %; NEUTROPHILS # (AUTO) 4.1 10^3/uL (1.5-6.6); NEUTROPHILS % (AUTO) 63.1 %; PLT - PLATELET COUNT 286 10^3/uL (130-450); RED BLOOD COUNT 3.54 10^6/uL (4.20-5.40); RED CELL DISTRIBUTION WIDTH 13.7 % (12.0-15.0); WHITE BLOOD COUNT 6.5 x10^3/uL (4.8-10.8)
[2024-03-10 05:57] LABS: ALBUMIN 3.3 g/dL (3.2-5.5); ALBUMIN/GLOBULIN RATIO 1.4 (1.0-2.2); BILIRUBIN,TOTAL 0.5 mg/dL (0.2-1.0); CALCIUM 8.3 mg/dL (8.5-10.3); CREATININE 0.6 mg/dL (0.6-1.3); MAGNESIUM 1.9 mg/dL (1.7-2.3); POTASSIUM 3.5 mmol/L (3.5-4.5); TOTAL PROTEIN 5.6 g/dL (6.4-8.9)
--- NOTE | 2024-03-10 08:26 | PROVIDER PROGRESS NOTE ---
Subjective - Subjective Subjective: Patient doing mildly better today. No acute events overnight. Was able to tolerate clear liquids yesterday including broth, liquids, Jell-O. Does desire to try more substantial food today. Some lower abdominal cramping, 3/10 at its worst. Passing flatus, but no bowel movement. Voiding without difficulty. Did ambulate some yesterday. Objective - Vital Signs/Intake & Output Reviewed Vital Signs: Yes Vital Signs: Vital Signs x48h Temp Pulse Resp BP Pulse Ox 03/10/24 07:20 98.1 F 67 16 130/77 96 Intake & Output: Intake & Output 03/07/24 03/08/24 03/09/24 03/10/24 23:59 23:59 23:59 23:59 Intake Total 1000 2533 450 Balance 1000 2533 450 - Objective General Appearance: positive: No acute distress Respiratory: positive: No respiratory distress Cardiovascular: positive: Regular rate & rhythm Abdomen: positive: Nml bowel sounds, No distention, Tenderness (mild in the lower abdomen). negative: Guarding, Rebound Neurologic/Psychiatric: positive: Oriented x3 - Lab Results Fish Bones: 03/10/24 05:23 03/10/24 05:23 Other Labs: Lab Results x24hrs 03/10/24 03/10/24 03/09/24 Range/Units 05:23 05:23 08:20 WBC 6.5 8.1 (4.8-10.8) x10^3/uL RBC 3.54 L 3.70 L (4.20-5.40) 10^6/uL Hgb 10.6 L 11.0 L (12.0-16.0) g/dL Hct 32.2 L 33.5 L (37.0-47.0) % MCV 91.0 90.5 (81.0-99.0) fL MCH 29.9 29.7 (27.0-31.0) pg MCHC 32.9 32.8 (32.0-36.0) g/dL RDW 13.7 14.0 (12.0-15.0) % Plt Count 286 285 (130-450) 10^3/uL MPV 9.5 9.3 (7.9-10.8) fL Neut # (Auto) 4.1 5.5 (1.5-6.6) 10^3/uL Lymph # (Auto) 1.8 1.9 (1.5-3.5) 10^3/uL [place] # (Auto) 0.4 0.6 (0.0-1.0) 10^3/uL Eos # (Auto) 0.1 0.1 (0.0-0.7) 10^3/uL Baso # (Auto) 0.0 0.0 (0.0-0.1) 10^3/uL Absolute Nucleated RBC 0.00 0.00 x10^3/uL Nucleated RBC % 0.0 0.0 /100WBC Sodium 137 (135-145) mmol/L Potassium 3.5 (3.5-4.5) mmol/L Chloride 106 (101-111) mmol/L Carbon Dioxide 27 (21-32) mmol/L Anion Gap 4.0 L (6-13) BUN 6 (6-20) mg/dL Creatinine 0.6 (0.6-1.3) mg/dL Estimated GFR (MDRD) 106 (>89) Glucose 102 (74-104) mg/dL Calcium 8.3 L (8.5-10.3) mg/dL Magnesium 1.9 (1.7-2.3) mg/dL Total Bilirubin 0.5 (0.2-1.0) mg/dL AST 9 L (10-42) IU/L ALT 10 (10-60) IU/L Alkaline Phosphatase 47 (42-121) IU/L Total Protein 5.6 L (6.4-8.9) g/dL Albumin 3.3 (3.2-5.5) g/dL Globulin 2.3 (2.1-4.2) g/dL Albumin/Globulin Ratio 1.4 (1.0-2.2) 03/09/24 Range/Units 08:20 WBC (4.8-10.8) x10^3/uL RBC (4.20-5.40) 10^6/uL Hgb (12.0-16.0) g/dL Hct (37.0-47.0) % MCV (81.0-99.0) fL MCH (27.0-31.0) pg MCHC (32.0-36.0) g/dL RDW (12.0-15.0) % Plt Count (130-450) 10^3/uL MPV (7.9-10.8) fL Neut # (Auto) (1.5-6.6) 10^3/uL Lymph # (Auto) (1.5-3.5) 10^3/uL [place] # (Auto) (0.0-1.0) 10^3/uL Eos # (Auto) (0.0-0.7) 10^3/uL Baso # (Auto) (0.0-0.1) 10^3/uL Absolute Nucleated RBC x10^3/uL Nucleated RBC % /100WBC Sodium 135 (135-145) mmol/L Potassium 3.6 (3.5-4.5) mmol/L Chloride 105 (101-111) mmol/L Carbon Dioxide 27 (21-32) mmol/L Anion Gap 3.0 L (6-13) BUN 9 (6-20) mg/dL Creatinine 0.7 (0.6-1.3) mg/dL Estimated GFR (MDRD) 89 (>89) Glucose 113 H (74-104) mg/dL Calcium 8.3 L (8.5-10.3) mg/dL Magnesium (1.7-2.3) mg/dL Total Bilirubin 0.5 (0.2-1.0) mg/dL AST 9 L (10-42) IU/L ALT 11 (10-60) IU/L Alkaline Phosphatase 46 (42-121) IU/L Total Protein 5.9 L (6.4-8.9) g/dL Albumin 3.4 (3.2-5.5) g/dL Globulin 2.5 (2.1-4.2) g/dL Albumin/Globulin Ratio 1.4 (1.0-2.2) Assessment/Plan - Problem List (1) Small bowel obstruction due to postoperative adhesions Impression: -Will advance diet to full clears today. Encourage patient to take it easy, go slow with food. Ambulation today. -If she worsens, discussed remaining possibility of NG tube and further decompression, but as she is passing gas, this is very reassuring. Hopefully bowel movement with full liquids and ambulation. -If worsens, will consult general surgery.
[2024-03-11 05:17] LABS: BASOPHILS % (AUTO) 0.6 %; EOSINOPHILS # (AUTO) 0.1 10^3/uL (0.0-0.7); EOSINOPHILS % (AUTO) 1.9 %; HCT - HEMATOCRIT 33.3 % (37.0-47.0); HGB - HEMOGLOBIN 10.9 g/dL (12.0-16.0); LYMPHOCYTES # (AUTO) 1.6 10^3/uL (1.5-3.5); LYMPHOCYTES % (AUTO) 25.1 %; MEAN CORPUSCULAR HEMOGLOBIN 29.9 pg (27.0-31.0); MEAN CORPUSCULAR HGB CONC 32.7 g/dL (32.0-36.0); MEAN CORPUSCULAR VOLUME 91.2 fL (81.0-99.0); MEAN PLATELET VOLUME 9.6 fL (7.9-10.8); MONOCYTES # (AUTO) 0.5 10^3/uL (0.0-1.0); MONOCYTES % (AUTO) 7.6 %; NEUTROPHILS % (AUTO) 64.6 %; PLT - PLATELET COUNT 321 10^3/uL (130-450); RED BLOOD COUNT 3.65 10^6/uL (4.20-5.40); RED CELL DISTRIBUTION WIDTH 13.2 % (12.0-15.0); WHITE BLOOD COUNT 6.2 x10^3/uL (4.8-10.8)
[2024-03-11 05:31] LABS: ALBUMIN 3.6 g/dL (3.2-5.5); ALBUMIN/GLOBULIN RATIO 1.4 (1.0-2.2); BILIRUBIN,TOTAL 0.6 mg/dL (0.2-1.0); CALCIUM 8.6 mg/dL (8.5-10.3); CREATININE 0.7 mg/dL (0.6-1.3); POTASSIUM 3.5 mmol/L (3.5-4.5); TOTAL PROTEIN 6.1 g/dL (6.4-8.9)
[2024-03-11 15:52] VITALS: BP 129/86; O2SAT 96
--- NOTE | 2024-03-15 21:48 | DISCHARGE SUMMARY ---
"Discharge Summary Admit Date: 03/08/24 Discharge Date: 03/11/24 Discharging Provider: Nereyda To MD Code Status: Attempt Resuscitation - DIAGNOSES Admission Diagnoses: s/p laparoscopic adnexal surgery 10 days ago. small bowel obstruction vs ileus. Discharge Diagnoses with Status of Each Condition: at time of discharge she was tolerating regular diet so obstrution or ileus was resolved. - HPI History of Present Illness: Surgery at [facility] 10 days prior to admission with endometriosis, lots of scar tissue and drainage of endometrioma in pelvis. was recovering well. 2 BM day prior to admission. Then severe abdominal pain and vomiting. Came to ER at . The ER tried to transfer her to [facility] but they did not have available beds. - CONSULTS | PROCEDURES Procedures: bowel rest. - HOSPITAL COURSE Hospital Course: When I saw her to admit her from the ER, she had not vomited for the last 10 hours and was feeling a bit better. Altough CT showed a bowel obstruction, she did not have a surgical abdomen and was not vomiting so I elected bowel rest and did not place an NG tube. She stayed NPO for a day and then progressed to clears, thicker liquids and then regular diet on day of discharge. She felt ready to go home. Her abdomen was still cleaner tube but less than on admission. She will follow up with her surgeon at [facility] [employer] - ALLERGIES Allergies/Adverse Reactions: Allergies Allergy/AdvReac Type Severity Reaction Status Date / Time No Known Drug Allergies Allergy Verified 03/08/24 12:29 - MEDICATIONS Home Medications: Ambulatory Orders Medication Instructions Recorded Confirmed Acetaminophen [Tylenol] 650 mg PO Q6H PRN 03/08/24 03/08/24 Cetirizine [ZyrTEC] 10 mg PO DAILY 03/08/24 03/08/24 Ibuprofen [Motrin] 600 mg PO Q6H PRN 03/08/24 03/08/24 Fluticasone [Flonase] 2 spray NIMISHA DAILY 03/09/24 03/09/24 Norethindrone 0.35 mg PO DAILY 03/09/24 03/09/24 Pimecrolimus [Elidel] 1 applic TOP BID PRN 03/09/24 03/09/24 Tretinoin [Avita] 1 applic TOP QPM 03/09/24 03/09/24 - PHYSICAL EXAM AT DISCHARGE General Appearance: positive: No acute distress Respiratory: positive: No respiratory distress Cardiovascular: positive: Regular rate & rhythm Abdomen: positive: Other (mildy tender diffusely. wounds from surgery healing well. mildly distended. no rebound or guarding. ) - LABS Result Diagrams: 03/11/24 05:01 03/11/24 05:01 - DIAGNOSTIC IMAGING Diagnostic Imaging Results: Final report reviewed - FOLLOW UP Follow Up: with her surgeon at [facility]. She is welcome to come to see us if needed. - TIME SPENT Time Spent in Discharge (Minutes): 30"
== END 2024-03-11 17:16 | disposition home or self-care (01) | DRG 948 ==
LOC: ED 12:18 → MS2 21:18
PROVIDERS: ADMIT Obstetrics & Gynecology; ATTEND Obstetrics & Gynecology
DX: G89.18 Other acute postprocedural pain (principal); R10.12 Left upper quadrant pain; D72.829 Elevated white blood cell count, unspecified; Z32.02 Encounter for pregnancy test, result negative; Z79.899 Other long term (current) drug therapy; Z87.42 Personal history of other diseases of the female genital tract; Z87.891 Personal history of nicotine dependence; Z90.710 Acquired absence of both cervix and uterus; Z90.721 Acquired absence of ovaries, unilateral; Z90.79 Acquired absence of other genital organ(s); Z98.890 Other specified postprocedural states
CPT/HCPCS: 36415; 74177; 76856; 80053; 81003; 81025; 83690; 83735; 85025; 93975; 96374; 96376; 99285; J0131; J1170; Q9967; 81001; 87086